=== PATIENT | male | born 1955 | race Caucasian/White ===

== ENCOUNTER 2016-08-26 11:46 | Inpatient (IN) | payer BC ==
--- NOTE | ~2016-08-26 | DS ---
Unit #: [id number] #: [id number] Patient: ZORAIDA POZO [id number] [address] [address] [id number] I MR#: [id number] NAME: ZORAIDA POZO. ROOM: 556 Age: 61 Sex: M Admission Date: 08/26/2016 : 1955 Discharge Date: 08/28/2016 Attending Physician: Kvng Hamilton M.D. Primary Care Physician: Celena Morgan A.P.R.N. DISCHARGE SUMMARY PRINCIPAL DISCHARGE DIAGNOSES 1. Enterobacter pyelonephritis. 2. Normocytic normochromic anemia. 3. Mild thrombocytopenia that occurred after admission. 4. Hyponatremia. 5. Obstructive sleep apnea syndrome. 6. Seizure disorder. 7. Type 2 diabetes mellitus. 8. Hyperlipidemia. 9. Coronary artery disease. 10. Benign prostatic hypertrophy. 11. Degenerative disk disease. 12. Distal esophageal thickening of unclear etiology likely related gastroesophageal reflux disease. 13. 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 14. Coronary artery disease, status post stenting x3. 15. Status post appendectomy. PROCEDURES None. CONSULTANTS None. REASON FOR HOSPITALIZATION The patient is a 61-year-old white male with history of coronary artery disease, hypertension, type 2 diabetes mellitus, seizure disorder, hyperlipidemia, BPH, who presents to the emergency room for low back pain, fever, chills, and low-grade temp. Urinalysis markedly abnormal consistent with urinary tract infection. White count 20.4, hemoglobin 12.6 with normal indices. Sodium 134, random blood sugar 227, lactic acid normal. CT scan of abdomen and pelvis, distal esophageal thickening, coronary artery disease with stenting, moderate posterior protruding disk at L4-5 and L5-S1, questionable mild lipoma and the patient admitted. HOSPITAL COURSE He was admitted and started on IV antibiotics. Urine cultures and blood culture sent. Blood cultures, no growth to date. Place on Accu-Cheks a.c. and h.s. Sliding-scale insulin. Lovenox for DVT prophylaxis. Urine culture grew greater than 10 to 30 Enterobacter resistant to ampicillin, but sensitive to all other antibiotics on the panel including Rocephin and Levaquin which he was started on. Blood cultures, no growth to date. White count down to 10.9, hemoglobin stable at 12.4, platelets slightly Unit #: [id number] #: [id number] Patient: ZORAIDA POZO this morning 139. BMP and Dilantin are pending at the time of dictation, it will be checked prior to discharge. If that are okay, he will be discharged home. He will be off work and seen in 1 week. He is on constant carb and heart-healthy diet. His medications will be resumed as previous to admission which include Flomax 0.4 mg daily, Lexapro 10 mg daily, Glucophage 1000 mg b.i.d., Actos 45 mg p.o. daily, metoprolol tartrate 100 mg p.o. b.i.d., Lipitor 20 mg daily, Dilantin 400 mg q.h.s., Accupril 40 mg daily, aspirin 81 mg daily, Plavix 75 mg daily, Amaryl 2 mg p.o. daily, Imdur ER 30 mg p.o. daily, vitamin D 50,000 units p.o. weekly with Tylenol 650 p.o. q.6 p.r.n., and Levaquin 500 mg p.o. daily for an additional 12 days for full 14-day course. FOLLOWUP When he follows in the office, he will need to have repeat BMP for the hyponatremia, CBC for the anemia, and thrombocytopenia and followup urinalysis for the pyelonephritis. Dictated by... Casey Montero/tone TD: 08/28/2016 10:09 JOB #: [id number] DISCHARGE SUMMARY Page 1 of 1 X Kvng Hamilton MD X DISCHARGE SUMMARY
--- NOTE | ~2016-08-26 | HP ---
Unit #: [id number] #: [id number] Patient: ZORAIDA POZO [id number] [address] [place], [place] [address] [id number] I MR#: [id number] NAME: ZORAIDA POZO. ROOM: 556 Age: 61 Sex: M Admission Date: 08/26/2016 : 1955 Attending Physician: Kvng Hamilton M.D. Primary Care Physician: Celena Morgan A.P.R.N. HISTORY AND PHYSICAL HISTORY OF PRESENT ILLNESS Hqudw-yli-bowm-old white male, history of coronary artery disease, cardiac stent x3, type 2 diabetes mellitus, epilepsy, hypertension, hyperlipidemia, benign prostatic hypertrophy, presented to the [facility] with one day of low back pain, fever and chills. He was directly sent to the emergency room with the diagnosis of urinary tract infection. There, he was diagnosed with pyelonephritis and admitted. He has no other complaints on review of systems and is feeling much better. His T-max overnight has been 100.7 and his white count was quite elevated and he obviously had a urinary tract infection from his urinalysis. CT scan didn't show any complications and he is admitted for further evaluation and therapy. PAST MEDICAL HISTORY 1. Coronary artery disease. 2. Hypertension. 3. Type 2 diabetes mellitus. 4. Epilepsy. 5. Hyperlipidemia. 6. Benign prostatic hypertrophy. 7. Gastroesophageal reflux disease. ALLERGIES No known drug allergies. MEDICATIONS PRIOR TO ADMISSION 1. Amaryl 2 mg p.o. q.a.m. 2. Dilantin 400 mg p.o. q.h.s. 3. Plavix 75 mg p.o. daily 4. Accupril 40 mg p.o. daily 5. Metoprolol tartrate 100 mg p.o. b.i.d. 6. Lipitor 20 mg p.o. daily 7. Actos 45 mg p.o. daily 8. Aspirin 81 mg p.o. daily 9. Lexapro 10 mg p.o. daily 10. Flomax 0.4 mg p.o. daily 11. Imdur 30 mg p.o. daily 12. Glucophage (dose unknown) two tablets twice daily 13. Vitamin D 50,000 units p.o. weekly PAST SURGICAL HISTORY 1. Cardiac stent x3. 2. Appendectomy. 3. Dislocated elbow Unit #: [id number] #: [id number] Patient: ZORAIDA POZO SOCIAL HISTORY Employed, nonsmoker, nondrinker, no illicit drug use. FAMILY HISTORY Noncontributory. PHYSICAL EXAMINATION GENERAL: He is awake, alert, oriented x3, no acute distress. VITAL SIGNS: T-max, overnight, 100.7, pulse 80, respirations 20, blood pressure 127/52, 02 sat 100% on room air. HEENT: Unremarkable. NECK: Supple without jugular venous distention, bruits, lymphadenopathy, or thyromegaly. CHEST: Clear to auscultation. HEART: Regular rate and rhythm without any murmurs, rubs, or gallops. ABDOMEN: Large, soft, nondistended, and nontender, with positive bowel sounds and no hepatosplenomegaly. EXTREMITIES: Show trace bilateral lower extremity edema with venous insufficiency changes. /RECTAL: Deferred. NEUROLOGIC: Grossly intact. DIAGNOSTIC STUDIES LAB VALUES: Urinalysis shows 2+ leukocytes, positive for nitrates, 3+ protein, 250 mg per dl of glucose, 1+ blood, innumerable WBCs, 4+ bacteria. White count was 20.4 with a left shift. Hemoglobin 12.6, platelets 144,000. CMP is normal except for a sodium of 134, and a blood sugar of 227. Lactic acid was 2.1 and then 1.9 on repeat. Urine culture is growing greater than 10/5th Gram negative rods. IMAGING: CT scan of the abdomen and pelvis was without dye shows distal esophageal thickening, coronary artery disease with stents, moderate posterior protruding disc at L4-5 and L5-S1, questionable mild lipoma, left adrenal gland. IMPRESSION 1. Gram negative senia pyelonephritis. 2. Benign prostatic hypertrophy. 3. Hypertension. 4. Hyperlipidemia. 5. Type 2 diabetes mellitus. 6. Hyponatremia. 7. Normocytic normochromic anemia. 8. Gastroesophageal reflux disease. 9. Distal esophageal thickening. 10. Coronary artery disease, status post stenting x3. 11. Status post appendectomy. 12. Probable left adrenal myolipoma. 13. Degenerative disc disease. 14. Obstructive sleep apnea syndrome. 15. Epilepsy. PLAN IV Rocephin and Levaquin pending urine sensitivity, check his Dilantin level, recheck his white count. Home on p.o. antibiotics when cultures and sensitivities return. Unit #: [id number] #: [id number] Patient: ZORAIDA POZO Please note the patient is on Lovenox for DVT prophylaxis. Dictated by Casey Montero/kianna TD: 08/27/2016 15:33 JOB #: [id number] HISTORY AND PHYSICAL Page 1 of 1 X Kvng Hamilton MD X HISTORY AND PHYSICAL
--- NOTE | ~2016-08-26 | CT4 ---
[facility] A Service of [facility] & [facility] RADIOLOGY TEXT RESULTS PATIENT: ZORAIDA POZO LOCATION: [facility] 556-01 : 55 UNIT #: [id number] AGE: [address]: Kvng Hamilton MD SEX: M ORDER DR: [id number] [facility] [address] [place], [place] [address] [id number] I MR#: [id number] Acc #: [id number] NAME: ZORAIDA POZO. : 1955 SEX: M STUDY DATE/TIME: 08/26/2016 12:18 UNIT: [facility] ROOM: [facility] STUDY DESCRIPTION: CT Abd and Pelv Wo Cont Attending Physician: Kvng Hamilton M.D. Ordering Physician: Nghia Marino D.O. Primary Care Physician: Celena Morgan A.P.R.N. MEDICAL IMAGING REPORT This report is preliminary unless electronic signature is present EXAM CT abdomen and pelvis without IV contrast COMPARISON None. INDICATION 61-year-old male with dysuria and hematuria as well as back pain for approximately [address] exam was performed with one or more of the following radiation dose reduction techniques: automatic control, adjustment of mA and/or kV according to patient size, and iterative reconstruction. FINDINGS Axial CT imaging of the abdomen and pelvis was performed without IV contrast. Lack of IV contrast limits evaluation of adenopathy, vasculature and viscera. Tiny fat-containing umbilical hernia. Multilevel degenerative facet disease of the lower lumbar spine. Diffuse thoracic spondylosis, a finding which may reflect DISH. There are moderate posterior disc protrusions L4-L5 and L5-S1 with annular calcification. No acute fractures or suspicious osseous lesions. Prominent fat in the anterior mediastinum. There is prominent pleural fat posteriorly. The distal esophagus appears circumferentially thickened, of uncertain acuity and etiology. Coronary artery calcifications. There is hypertrophy of the left hepatic lobe, possibly compensatory given the right hepatic lobe appears somewhat small. No convincing evidence of cirrhosis. Gallbladder is within normal limits. Pancreas, spleen and right adrenal gland are unremarkable. There is question of a myelolipoma within the left adrenal gland which is not well evaluated given soft tissue attenuation. There [facility] A Service of [facility] & [facility] / [facility] RADIOLOGY TEXT RESULTS PATIENT: ZORAIDA POZO LOCATION: [facility] 556-01 : 55 UNIT #: [id number] AGE: [address]: Kvng Hamilton MD SEX: M ORDER DR: are arterial calcifications at the level of the renal dana bilaterally. There is no hydronephrosis or hydroureter. No renal or ureteral calculus. Urinary bladder is unremarkable. Prostate gland is within normal limits. There are a few sigmoid diverticula without evidence of acute diverticulitis. There is likely a right sided coronary artery stent. The appendix is not seen in keeping with given history of appendectomy. No evidence of bowel obstruction. There is diffuse calcification of the abdominal aorta extending into the iliac and femoral arteries bilaterally. There are also calcifications at the origins of the renal arteries and at the origins of the celiac and superior mesenteric artery. There is diffuse calcification of the splenic artery. Normal caliber of the abdominal aorta. No free fluid or pneumoperitoneum. No adenopathy. IMPRESSION 1. There is a circumferential thickening of the distal esophagus, perhaps reflecting esophagitis. Consider direct visualization if this has not been recently performed. Neoplastic lesion is thought unlikely but not entirely excluded. 2. Coronary artery disease with evidence of coronary artery stenting. 3. Moderate posterior disc protrusions L4-L5 and L5-S1. 4. Question of myelolipoma in the left adrenal gland, not well evaluated due to patient body habitus. No renal or ureteral calculi. 5. Diffuse arterial calcification of the abdomen and pelvis and proximal thighs as described in the body of the report. Dictated by... Romulo Pina M.D. THIS IS AN ELECTRONICALLY VERIFIED REPORT Romulo Pina M.D. at 08/29/2016 10:15 AM DALLIA/aric TD: 08/26/2016 23:17 JOB #: [id number] MEDICAL IMAGING REPORT Page 1 of 1 COPY
[2016-08-26 11:00] LABS: URINE SOURCE CLEAN CATCH
[2016-08-26 11:03] LABS: URINE APPEARANCE CLOUDY; URINE BILIRUBIN NEG (NEG); URINE BLOOD 1+ (NEG); URINE COLOR YELLOW; URINE GLUCOSE 250 MG/DL (NEG); URINE KETONE NEG (NEG); URINE LEUKOCYTE ESTERASE 2+ (NEG); URINE NITRATE POS (NEG); URINE PROTEIN 3+ (NEG); URINE SPECIFIC GRAVITY 1.033 (1.003-1.035)
[2016-08-26 11:06] LABS: CULTURE INDICATED? YES; URINE BACTERIA AUWI 4+ (NEGATIVE); URINE SQUAMOUS EPITHELIAL CELL NONE SEEN /[HPF]; UWBCS1 AUWI INNUM (0-5)
[~2016-08-26 11:46] MED LIST: ACCUPRIL; ACCUPRIL40 MG PO; ACTOS; CRESTOR; DILANTIN; GLUCOPHAGE XR500 MG PO; LEVAQUIN PO; NIASPAN; NITROGLYCERIN0.4 MG SL; PLAVIX; ST. JOSEPH ASPI81 M2 PO; TOPROL XL; VYETTA
[2016-08-26 13:12] LABS: BASOPHIL# 0.1 X10e3 (0-0.3); BASOPHIL% 0.2 % (0-2.5); EOSINOPHIL% 0.1 % (0.0-7.0); HEMATOCRIT 39.3 % (38.0-50.0); HEMOGLOBIN 12.6 gm/dL (13.0-16.0); LYMPHOCYTE# 1.4 X10e3 (1.0-3.5); LYMPHOCYTE% 6.8 % (17.0-45.0); MEAN CELL VOLUME 94.4 FL (83-96); MEAN CORPUSCULAR HEMOGLOBIN 30.3 PG (28-34); MEAN CORPUSCULAR HGB CONC 32.1 g/dL (30-36); MEAN PLATELET VOLUME 8.4 FL (6.5-11.5); MONOCYTE# 2.8 X10e3 (0-1.0); MONOCYTE% 13.6 % (3.0-12.0); NEUTROPHIL# 16.2 X10e3 (1.5-7.1); NEUTROPHIL% 79.3 % (40-75); PLATELET COUNT 144 X10e3 (140-420); RED BLOOD COUNT 4.17 X10e (3.90-5.60); RED CELL DISTRIBUTION WIDTH 14.9 % (11.0-15.5); WHITE BLOOD COUNT 20.4 X10e3 (4.0-10.5)
[2016-08-26 13:13] LABS: DIFF IND YES
[2016-08-26 13:26] LABS: PLATELET ESTIMATE NORMAL (NORMAL)
[2016-08-26 13:27] LABS: ANISOCYTOSIS SL
[2016-08-26 13:36] LABS: ALBUMIN SERUM 3.8 g/dL (3.5-5.0); BILIRUBIN, DIRECT 0.2 mg/dL (0.0-0.2); BILIRUBIN,INDIRECT 0.9 mg/dL (0.0-0.9); BILIRUBIN,TOTAL 1.1 mg/dL (0.2-2.0); CALCIUM SERUM 8.5 mg/dL (8.4-10.2); CREATININE SERUM 0.8 mg/dL (0.6-1.4); GLOM FILT RATE Estimated 96.5 mL/min (>60); POTASSIUM 4.1 mmol/L (3.5-5.1); PROTEIN TOTAL SERUM 7.4 g/dL (6.0-8.3)
[2016-08-26] MEDS ORDERED: GLIMEPIRIDE2 MG PO (17:41)
[2016-08-26] MEDS ORDERED: CLOPIDOGREL75 MG PO (17:42)
[2016-08-26] MEDS ORDERED: ACCUPRIL40 MG PO (17:42)
[2016-08-26] MEDS ORDERED: METOPROLOL TAR100 MG PO (17:44)
[2016-08-26] MEDS ORDERED: DILANTIN PO (17:44)
[2016-08-26] MEDS ORDERED: ESCITALOPRAM OX10 MG PO (17:45)
[2016-08-26] MEDS ORDERED: PIOGLITAZONE45 MG PO (17:45)
[2016-08-26] MEDS ORDERED: BAYER CHEWABLE81 MG PO (17:45)
[2016-08-26] MEDS ORDERED: LIPITOR20 MG PO (17:45)
[2016-08-26] MEDS ORDERED: FLOMAX0.4 M1 PO (17:46)
[2016-08-26] MEDS ORDERED: IMDUR-ER30 M1 PO (17:47)
[2016-08-26] MEDS ORDERED: GLUCOPHAGE500 M1 PO (17:48)
[2016-08-26] MEDS ORDERED: VITAMIN D250000 UNIT PO (17:49)
[2016-08-28 06:15] LABS: HEMATOCRIT 37.6 % (38.0-50.0); HEMOGLOBIN 12.4 gm/dL (13.0-16.0); MEAN CELL VOLUME 93.2 FL (83-96); MEAN CORPUSCULAR HEMOGLOBIN 30.9 PG (28-34); MEAN CORPUSCULAR HGB CONC 33.1 g/dL (30-36); MEAN PLATELET VOLUME 8.3 FL (6.5-11.5); RED BLOOD COUNT 4.03 X10e (3.90-5.60); RED CELL DISTRIBUTION WIDTH 14.7 % (11.0-15.5); WHITE BLOOD COUNT 10.9 X10e3 (4.0-10.5)
[2016-08-28 06:50] LABS: BUN/CREATININE RATIO 15.45; CREATININE SERUM 1.1 mg/dL (0.6-1.4); DILANTIN (PHENYTOIN) 4.8 ug/mL (10.0-20.0); GLOM FILT RATE Estimated 72.1 mL/min (>60)
[2016-08-28] MEDS ORDERED: ACETAMINOPHEN PO (09:14)
[2016-08-28] MEDS ORDERED: LEVAQUIN PO (09:14)
== END 2016-08-28 11:31 | disposition home or self-care (01) | DRG 690 ==
LOC: CED 11:46 → CEDOF 17:40 → C5B 22:00
PROVIDERS: Emergency Medicine; Internal Medicine
DX: N12 Tubulo-interstitial nephritis, not specified as acute or chronic (principal); D69.6 Thrombocytopenia, unspecified; E87.1 Hypo-osmolality and hyponatremia; B96.89 Other specified bacterial agents as the cause of diseases classified elsewhere; E11.9 Type 2 diabetes mellitus without complications; I10 Essential (primary) hypertension; K22.8 Other specified diseases of esophagus; Z16.11 Resistance to penicillins; Z79.84 Long term (current) use of oral hypoglycemic drugs; I25.10 Atherosclerotic heart disease of native coronary artery without angina pectoris; Z95.5 Presence of coronary angioplasty implant and graft; D64.9 Anemia, unspecified; G47.33 Obstructive sleep apnea (adult) (pediatric); G40.909 Epilepsy, unspecified, not intractable, without status epilepticus; E78.5 Hyperlipidemia, unspecified; N40.0 Benign prostatic hyperplasia without lower urinary tract symptoms; M51.36 Other intervertebral disc degeneration, lumbar region; K21.9 Gastro-esophageal reflux disease without esophagitis; D17.79 Benign lipomatous neoplasm of other sites
CPT/HCPCS: 36415; 74176; 80048; 80076; 80185; 81003; 82947; 83605; 85025; 85027; 87040; 87086; 87088; 87186; 96361; 96374; 99285; J0696; J1650; J1815; J1956